=== PATIENT | female | born 1975 | race Caucasian/White ===

== ENCOUNTER → 2017-02-28 | Outpatient (CLI) | payer OTHER ==
[~2017-02-28] MED LIST: CLX20 PO; LEVO-217 PO; LRT5 PO; MELO7.5T5 PO; OXYC-57 PO
== END | disposition home or self-care (01) ==
LOC: C.PAPS 08:07
PROVIDERS: ATTEND Obstetrics & Gynecology
DX: Z12.4 Encounter for screening for malignant neoplasm of cervix (principal); N88.0 Leukoplakia of cervix uteri